=== PATIENT | female | born 1985 | race African-American/Black ===

== ENCOUNTER 2023-07-29 06:19 | Outpatient (RCR) | payer OTHER, SELFPAY | END 2023-07-29 23:59 | disposition home or self-care (01) | LOC: RPT 06:19 | PROVIDERS: ATTENDING PHYSICIAN Obstetrics & Gynecology; PRIMARYCARE PHYSICIAN Family Medicine | DX: M62.89 Other specified disorders of muscle (principal); R10.2 Pelvic and perineal pain; M62.81 Muscle weakness (generalized); R27.8 Other lack of coordination | CPT/HCPCS: 97110; 97162; 97530 ==

== ENCOUNTER 2023-09-20 12:04 | Outpatient (RCR) | payer OTHER, SELFPAY | END 2023-09-20 23:59 | disposition home or self-care (01) | LOC: RPT 12:04 | PROVIDERS: ATTENDING PHYSICIAN Obstetrics & Gynecology; PRIMARYCARE PHYSICIAN Family Medicine | DX: M62.89 Other specified disorders of muscle (principal); R10.2 Pelvic and perineal pain; M62.81 Muscle weakness (generalized); R27.8 Other lack of coordination | CPT/HCPCS: 97014; 97110; 97112; 97140; 97530 ==

== ENCOUNTER 2023-10-21 12:05 | Outpatient (RCR) | payer OTHER, SELFPAY | END 2023-10-21 23:59 | disposition home or self-care (01) | LOC: RPT 12:05 | PROVIDERS: ATTENDING PHYSICIAN Obstetrics & Gynecology; PRIMARYCARE PHYSICIAN Family Medicine | DX: M62.89 Other specified disorders of muscle (principal); R10.2 Pelvic and perineal pain; Z73.6 Limitation of activities due to disability; M62.81 Muscle weakness (generalized); R27.8 Other lack of coordination | CPT/HCPCS: 97014; 97112; 97140; 97530 ==

== ENCOUNTER 2023-12-05 17:03 | Outpatient (RCR) | payer OTHER, SELFPAY | END 2023-12-05 23:59 | disposition home or self-care (01) | LOC: RPT 17:03 | PROVIDERS: ATTENDING PHYSICIAN Obstetrics & Gynecology; PRIMARYCARE PHYSICIAN Family Medicine | DX: M62.89 Other specified disorders of muscle (principal); R27.8 Other lack of coordination; R10.2 Pelvic and perineal pain; M62.81 Muscle weakness (generalized); Z73.6 Limitation of activities due to disability | CPT/HCPCS: 97530 ==

== ENCOUNTER → 2023-12-09 16:08 | Outpatient (REF) | payer OTHER, SELFPAY | LOC: RAD 16:08 | PROVIDERS: ATTENDING PHYSICIAN Internal Medicine; FAMILY PHYSICIAN Family Medicine | DX: R11.0 Nausea (principal); R63.4 Abnormal weight loss | CPT/HCPCS: 74177; Q9967 ==

== ENCOUNTER 2024-03-04 12:14 | Outpatient (RCR) | payer OTHER, SELFPAY | END 2024-03-04 23:59 | disposition home or self-care (01) | LOC: RPT 12:14 | PROVIDERS: ATTENDING PHYSICIAN Psychiatry & Neurology Neurology; FAMILY PHYSICIAN Family Medicine | DX: H93.11 Tinnitus, right ear (principal); R42 Dizziness and giddiness | CPT/HCPCS: 97110; 97162 ==

== ENCOUNTER 2024-03-05 08:47 | Emergency (ER) | payer OTHER, SELFPAY ==
[2024-03-05 08:49] VITALS: BP 134/74
--- NOTE | 2024-03-05 09:14 | ED.GENMED ---
History of Present Illness
General
Chief Complaint: Musculo-Skeletal Complaint
Time Seen by Provider: 03/05/24 09:01
History of Present Illness
History of Present Illness:
38-year-old female with no significant chronic medical history presents to the emergency department for evaluation of left thoracic back discomfort beginning last night. Pain is nonpleuritic and nonradiating, seem to be improved this morning
however worsened abruptly upon awakening. Denies any anterior chest or abdominal pain. No lower urinary tract voiding symptoms. No reported fevers, chills, sweats, coughing, URI symptoms, or extremity paresthesias. She also notes having weight
loss of approximately 60 pounds since July. She did undergo outpatient endoscopy and colonoscopy with 1 polypectomy and otherwise unremarkable biopsies. She reports that she was seen by her primary care physician for this and had labs that
were unrevealing.
Past History
Past History
ED Past Medical History: Other (Fibromyalgia, irritable colitis, IBS)
ED Past Surgical History:
Social History
Tobacco: Smoker
Alcohol: Occasional (Rare alcohol use)
Drug: None
Personal: Partner (Girlfriend)
Living: with family
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
Family History
Family History: Other (Noncontributory)
Review of Systems
Review of Systems
Allergies reviewed?: Yes
All Other Systems: ROS reviewed and negative except as documented in HPI and ROS
Phy Exam
Physical Exam
Physical Exam:
GEN: Well appearing, NAD, WDWN
Eyes: PERRLA, EOMs intact, no scleral icterus
HENT: NCAT, oral mucosa moist
Lungs: CTAB, no wheezes, rales, rhonchi, normal chest wall excursion
Cardiac: RRR, no M/R/G, no peripheral edema. Radial pulses 2+ bilat
Abdomen: S, NT, ND, NABS, no masses or hepatosplenomegaly, no CVA tenderness.
Neuro: AO x 3
MSK: No gross deformity or ecchymosis. No edema. No digital clubbing. Mild tenderness to the left lumbar paraspinous musculature at the patient's reported site of pain
Skin: No rashes, petechiae. Normal color, no pallor or jaundice.
Psych: Calm, cooperative, proper hygiene
Course
Orders/Labs/Results
Orders:
Orders
03/05/24 09:14
CR Chest - 2 Views Urgent
Comment:
Reason For Exam: L thoracic back pain, smoker
03/05/24 09:26
Complete Blood Count/With Diff Urgent
Comprehensive Metabolic Panel Urgent
TSH Reflex To Free T4 Urgent
Urinalysis Reflex To Culture Urgent
Date Specimen was Collected: 03/05/24
Time Specimen was Collected: 09:18
03/05/24 11:17
Add On- LAB Urgent
Tests Added?: TSH reflex free T4
Abnormal Lab Results
03/05/24
09:26
WBC 4.2 L 10^3/uL
(4.8-10.8)
Hgb 11.8 L g/dL
(12.0-16.0)
Hct 34.7 L %
(37.0-47.0)
MPV 11.3 H fL
(7.4-10.4)
03/05/24 09:26
03/05/24 09:26
Vital Signs
Initial and Last Documented VS:
Initial Vital Signs
Temp Pulse Resp BP Pulse Ox
98.2 F 64 16 134/74 100
03/05/24 08:49 03/05/24 08:49 03/05/24 08:49 03/05/24 08:49 03/05/24 08:49
Last Documented Vital Signs
Temp Pulse Resp BP Pulse Ox
98.2 F 64 16 134/74 100
03/05/24 08:49 03/05/24 08:49 03/05/24 08:49 03/05/24 08:49 03/05/24 08:49
MDM/Problems Addressed
MDM/Problems Addressed:
Thoracic back pain is most likely musculoskeletal in nature. Regards to her weight loss this is been worked up as an outpatient previously with endoscopy and colonoscopy as well as outpatient labs and repeat labs in the emergency department are
unremarkable. Unclear etiology but the patient was clinically well. Recommend continued PCP follow-up for this
*Critical Care Note
Total Time (30-74mins, 75-104mins- exclusive of procedures): Not Applicable
ED Attending Note
-
Portions of this chart may have been created with voice recognition software.� Occasional wrong word or��sound alike� substitutions may have occurred due to the inherent limitations of voice recognition software.
Discharge Plan
Departure
Patient Disposition: Home (Routine Discharge)
Date of Disposition: 03/05/24
Time of Disposition: 10:55
Patient with high blood pressure during this ER visit?: No
Discharge Problem:
Back pain, thoracic, Unintentional weight loss
Instructions: Back Pain
Prescriptions:
No Action
cetirizine [Zyrtec] 10 mg Tablet
10 mg PO HS
ibuprofen [Motrin] 800 mg Tablet
800 mg PO Q6H PRN (Reason: pain)
tizanidine 4 mg Tablet
4 mg PO PRN PRN (Reason: muscle pain)
Medical Marijuana
1 dose PO HS
polyethylene glycol 3350 [Miralax] 17 gram Powder In Packet
17 g PO HS
Referrals:
Trav Adam MD [Family Provider] -
Activity Restrictions/Additional Instructions:
Continue to work with your primary doctor regarding your ongoing weight loss
Interventions
Interventions:
*General Assessment Last Done: 03/05/24 09:37
*Neglect/Abuse Screening Last Done: 03/05/24 09:37
ED- Fall Risk Assessment Last Done: 03/05/24 09:39
*ED COVID-19 Vaccine History Last Done: 03/05/24 09:37
*Nursing Disposition Last Done: 03/05/24 11:21
ED-Musculoskeletal Assessment Last Done: 03/05/24 10:41
Discharge Date and Time
Discharge Date/Time: 03/05/24 11:22
Print Language: [place]
[2024-03-05 09:17] VITALS: BMI 27.6
[2024-03-05 09:45] LABS: % Basophils 0.5 % (0-2); % Eosinophils 0.5 % (0-6); % Immature Granulocytes 0.2 % (0-0.5); % Lymphocytes 35.2 % (20.5-51.1); % Monocytes 7.7 % (1.7-9.3); % Neutrophils 55.9 % (42.2-75.2); Absolute Lymphocytes 1.5 10^3/uL (1.2-3.4); Absolute Monocytes 0.3 10^3/uL (0.1-0.6); Absolute Neutrophils 2.3 10^3/uL (1.4-6.5); Hematocrit 34.7 % (37.0-47.0); Hemoglobin 11.8 g/dL (12.0-16.0); Mean Corpuscular Hgb 27.6 pg (27.0-31.0); Mean Corpuscular Volume 81.3 fL (81.0-99.0); Mean Platelet Volume 11.3 fL (7.4-10.4); Nucleated Red Blood Cells % 0 %; Platelet Count 212 10^3/uL (130-400); Red Blood Cell Count 4.27 10^6/uL (4.20-5.40); Red Cell Dist. Width 14.1 % (11.5-14.5); White Blood Cell Count 4.2 10^3/uL (4.8-10.8)
[2024-03-05 09:55] LABS: ALT (SGPT) 13 U/L (0-35); AST (SGOT) 21 U/L (14-36); Albumin 4.4 g/dl (3.5-5.0); Alkaline Phosphatase 47 U/L (38-126); Blood Urea Nitrogen 16 mg/dl (7-17); Calcium 9.5 mg/dl (8.4-10.2); Carbon Dioxide 25 mmol/L (22-30); Chloride 105 mmol/L (98-107); Estimated Creatinine Clearance > 125 ml/min; Glucose 91 mg/dl (70-99); Potassium 3.9 mmol/L (3.5-5.1); Sodium 138 mmol/L (135-145); Total Bilirubin 0.6 mg/dl (0.2-1.3); Total Protein 7.1 g/dl (6.3-8.2); eGFR > 60.00
[2024-03-05 10:12] LABS: Urine Albumin Negative (Neg - Trace); Urine Bilirubin Negative (Negative); Urine Character Clear (Clear); Urine Color Yellow; Urine Glucose Negative (Negative); Urine Ketone Negative (Negative); Urine Leukocyte Negative (Negative); Urine Nitrite Negative (Negative); Urine Occult Blood Negative (Negative); Urine Specific Gravity 1.015 (<1.030); Urine Urobilinogen Negative (Neg - 1+)
[2024-03-05 13:00] LABS: TSH Reflex To Free T4 0.62 uIU/ml (0.47-4.68)
== END 2024-03-05 11:22 | disposition home or self-care (01) ==
LOC: EMR 08:47
PROVIDERS: Physician Assistant; EMERGENCY PHYSICIAN Emergency Medicine; FAMILY PHYSICIAN Family Medicine
DX: M54.6 Pain in thoracic spine (principal); R63.4 Abnormal weight loss; M79.7 Fibromyalgia; K58.9 Irritable bowel syndrome, unspecified; F17.200 Nicotine dependence, unspecified, uncomplicated
CPT/HCPCS: 99283; 71046; 80053; 81003; 84443; 85025

== ENCOUNTER → 2024-04-03 20:10 | Outpatient (REF) | payer OTHER, SELFPAY | LOC: MRI 3T 20:10 | PROVIDERS: ATTENDING PHYSICIAN Psychiatry & Neurology Neurology; FAMILY PHYSICIAN Family Medicine | DX: R93.0 Abnormal findings on diagnostic imaging of skull and head, not elsewhere classified (principal); R42 Dizziness and giddiness; H93.11 Tinnitus, right ear | CPT/HCPCS: 70553; A9575 ==

== ENCOUNTER 2024-09-17 14:50 | Emergency (ER) | payer OTHER, SELFPAY ==
[2024-09-17 14:55] VITALS: BP 176/116
--- NOTE | 2024-09-17 15:20 | ED.GENMED ---
History of Present Illness
General
Chief Complaint: Crisis Evaluation
Source: patient
Time Seen by Provider: 09/17/24 15:10
History of Present Illness
History of Present Illness:
38-year-old female with fibromyalgia, interstitial cystitis, IBS presenting to the emergency department for evaluation of suicidal ideation without any specific plan noting that over the last few months she has felt much more anxious and 'having an
increased difficult time with her PTSD and anxiety'. Patient states that she has been through multiple jobs, feels her current job right now did not adequately train her and feels that she is constantly judged at work, states that she has been
losing a significant amount of weight without trying and no specific etiologies despite following up with medical providers. Today patient was very upset and tearful and mention to her partner that she felt as if she were better off no longer in
this world and was having thoughts of harming herself and was recommended by her partner to come to the ER for help. Patient states that she was started on medication in June for anxiety and depression but has not had much relief. She does
note due to the holidays as well as family members getting sick she has missed multiple appointments with her therapist and has not seen her therapist in a little over 1 month which patient does believe has led to more anxiety and depression.
Currently no physical complaints. Denies any homicidal ideation. She does states sometimes she feels as if she is telling her own self to self-harm and notes that she sometimes will scratch at her chest wall.
Past History
Past History
ED Past Medical History: Fibromyalgia, Psychiatric and Other (Fibromyalgia, irritable colitis, IBS)
ED Past Surgical History:
Social History
Tobacco: Smoker
Alcohol: Occasional (Rare alcohol use)
Drug: None
Personal: Partner (Girlfriend)
Living: with family
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
Family History
Family History: Other (Noncontributory)
Review of Systems
Review of Systems
All Other Systems: ROS reviewed and negative except as documented in HPI and ROS
Phy Exam
Physical Exam
Physical Exam:
GENERAL: Alert , tearful and upset, very anxious in appearance
EYE: conjunctiva clear
Head: Normocephalic atraumatic
NECK: Supple,
ENT: mmm.
LUNGS: no acute respiratory distress
NEUROLOGICAL: Alert and oriented
SKIN: Warm and dry, small well-healed abrasions to the left anterior chest wall
MUSCULOSKELETAL: well perfused.
PSYCH: Normal and appropriate interaction.
Scores
Heart Failure Risk
Heart Failure Risk Score: Not Applicable
Heart Score for Chest Pain Patients
STEMI patient?: Not applicable
Withdrawal Assessment of Alcohol
Withdrawal Assessment Completed?: Not applicable
Course
Orders/Labs/Results
Orders:
Orders
09/17/24 15:04
Test Result ONCE
09/17/24 15:07
Alcohol Urgent
Complete Blood Count/With Diff Urgent
Comprehensive Metabolic Panel Urgent
HCG, Serum Qualitative Screen Urgent
09/17/24 15:29
1:1 Observation - Suicide/ Violent Behavior As Directed
Crisis Consult Urgent
Reason for Consult: suicidal thoughts
Abnormal Lab Results
09/17/24
15:07
Hgb 11.9 L g/dL
(12.0-16.0)
Hct 35.3 L %
(37.0-47.0)
MPV 11.2 H fL
(7.4-10.4)
Glucose 107 H mg/dl
(70-99)
09/17/24 15:07
09/17/24 15:07
Vital Signs
Initial and Last Documented VS:
Initial Vital Signs
Temp Pulse Resp BP Pulse Ox
98.5 F 105 16 176/116 100
09/17/24 14:55 09/17/24 14:55 09/17/24 14:55 09/17/24 14:55 09/17/24 14:55
Last Documented Vital Signs
Temp Pulse Resp BP Pulse Ox
98.5 F 105 16 176/116 100
09/17/24 14:55 09/17/24 14:55 09/17/24 14:55 09/17/24 14:55 09/17/24 14:55
MDM/Problems Addressed
Differential Diagnosis Includes:
Anxiety, depression, suicidal ideation
MDM/Problems Addressed:
38-year-old female presenting to the ER for evaluation of increased anxiety/depression and today was having more thoughts of self-harm. Patient without plan or intent. Has been struggling with some outpatient follow-up. Denies substance abuse
today. Unclear etiology for patient's weight issues. In February she weighed 73 kg, will repeat weight here. Will have patient screened by Ruth Arce. Disposition pending.
Chronic conditions affecting care: Psychiatric illness
Acute Exacerbation and/or Progression of Chronic Illness: Psychiatric illness
*Pulse Oximetry
Patient hypoxic: no
*Critical Care Note
Total Time (30-74mins, 75-104mins- exclusive of procedures): Not Applicable
Data Reviewed
Review of Other/Old Records Reveals: Records
Patient Management
Escalation/DeEscalation of care consider admission/obs:
[facility] Patient without any plan or intent to harm herself. Following ER visit patient notes that she feels much better. She has an appointment with her therapist this coming Saturday. She is aware of return
precautions to the ER.
ED Attending Note
-
Portions of this chart may have been created with voice recognition software.� Occasional wrong word or��sound alike� substitutions may have occurred due to the inherent limitations of voice recognition software.
Discharge Plan
Departure
Patient Disposition: Home (Routine Discharge)
Date of Disposition: 09/17/24
Time of Disposition: 16:56
Patient with high blood pressure during this ER visit?: Yes
Discharge Problem:
Anxiety
Instructions: Anxiety, Adult (DC)
Prescriptions:
No Action
cetirizine [Zyrtec] 10 mg Tablet
10 mg PO HS
ibuprofen [Motrin] 800 mg Tablet
800 mg PO Q6H PRN (Reason: pain)
tizanidine 4 mg Tablet
4 mg PO PRN PRN (Reason: muscle pain)
Medical Marijuana
1 dose PO HS
polyethylene glycol 3350 [Miralax] 17 gram Powder In Packet
17 g PO HS
Referrals:
UNKNOWN - PT NOT,INTERVIEWE [Family Provider] -
Interventions
Interventions:
*Risk Screen - Suicide Last Done: 09/17/24 14:55
*General Assessment Last Done: 09/17/24 14:55
*Neglect/Abuse Screening Last Done: 09/17/24 14:55
*Nursing Disposition Last Done: 09/17/24 17:01
ED-Psychological Assessment Last Done: 09/17/24 15:46
Discharge Date and Time
Discharge Date/Time: 09/17/24 17:01
Print Language: AZERI
[2024-09-17 15:33] LABS: % Basophils 0.2 % (0-2); % Eosinophils 0.3 % (0-6); % Immature Granulocytes 0.3 % (0-0.5); % Lymphocytes 21.5 % (20.5-51.1); % Monocytes 6.7 % (1.7-9.3); Absolute Lymphocytes 1.3 10^3/uL (1.2-3.4); Absolute Monocytes 0.4 10^3/uL (0.1-0.6); Absolute Neutrophils 4.2 10^3/uL (1.4-6.5); Hematocrit 35.3 % (37.0-47.0); Hemoglobin 11.9 g/dL (12.0-16.0); Mean Corp Hgb Conc. 33.7 g/dL (33.0-37.0); Mean Corpuscular Hgb 28.2 pg (27.0-31.0); Mean Corpuscular Volume 83.6 fL (81.0-99.0); Mean Platelet Volume 11.2 fL (7.4-10.4); Nucleated Red Blood Cells % 0 %; Platelet Count 184 10^3/uL (130-400); Red Blood Cell Count 4.22 10^6/uL (4.20-5.40); Red Cell Dist. Width 13.8 % (11.5-14.5); White Blood Cell Count 5.9 10^3/uL (4.8-10.8)
[2024-09-17 15:41] LABS: HCG, Serum Qualitative Screen Negative
[2024-09-17 15:42] LABS: ALT (SGPT) 18 U/L (0-35); AST (SGOT) 22 U/L (14-36); Albumin 4.6 g/dl (3.5-5.0); Alkaline Phosphatase 48 U/L (38-126); Blood Urea Nitrogen 11 mg/dl (7-17); Calcium 9.4 mg/dl (8.4-10.2); Carbon Dioxide 28 mmol/L (22-30); Chloride 99 mmol/L (98-107); Glucose 107 mg/dl (70-99); Potassium 3.5 mmol/L (3.5-5.1); Sodium 137 mmol/L (135-145); Total Bilirubin 0.3 mg/dl (0.2-1.3); Total Protein 7.6 g/dl (6.3-8.2); eGFR > 60.00
[2024-09-17 15:54] LABS: Alcohol None Detected
== END 2024-09-17 17:01 | disposition home or self-care (01) ==
LOC: EMR 14:50
PROVIDERS: EMERGENCY PHYSICIAN Emergency Medicine
DX: F41.8 Other specified anxiety disorders (principal); M79.7 Fibromyalgia; K58.9 Irritable bowel syndrome, unspecified; F43.10 Post-traumatic stress disorder, unspecified; F17.200 Nicotine dependence, unspecified, uncomplicated
CPT/HCPCS: 99283; 80053; 82077; 84703; 85025

== ENCOUNTER 2024-10-14 12:01 | Outpatient (RCR) | payer OTHER, SELFPAY | END 2024-10-14 23:59 | disposition home or self-care (01) | LOC: RPT 12:01 | PROVIDERS: ATTENDING PHYSICIAN Obstetrics & Gynecology; FAMILY PHYSICIAN Family Medicine | DX: M62.89 Other specified disorders of muscle (principal); R10.2 Pelvic and perineal pain; N39.8 Other specified disorders of urinary system; M54.50 Low back pain, unspecified; Z73.6 Limitation of activities due to disability | CPT/HCPCS: 97110; 97140; 97163; 97530 ==

== ENCOUNTER 2024-10-21 05:53 | Emergency (ER) | payer OTHER, SELFPAY ==
[2024-10-21 06:00] VITALS: BP 130/70
[2024-10-21 06:28] VITALS: BMI 24.9
--- NOTE | 2024-10-21 06:39 | ED.GENMED ---
History of Present Illness
General
Chief Complaint: Throat Problem
Time Seen by Provider: 10/21/24 06:26
History of Present Illness
History of Present Illness:
Patient is a 39-year-old woman presented emergency department for sore throat. Patient states for the past day she has had a sore throat. She states that it hurts to talk secondary to the pain. She did feel lymph nodes in her neck. She does
state that her partner was recently sick with the flu. She has been having bodyaches but states that she initially thought it was a side effect from her psychiatric medication. She does state that she does have allergies and reflux which have been
worsening recently. She is not currently on H2 or PPI jaren. She does note that when she was vaping yesterday the pain worsened. No chest pain. No difficulty breathing. No swallowing difficulties. No fevers or chills.
Past History
Past History
ED Past Medical History: Fibromyalgia, Psychiatric and Other (Fibromyalgia, irritable colitis, IBS)
ED Past Surgical History:
Social History
Tobacco: Smoker
Alcohol: Occasional (Rare alcohol use)
Drug: None
Personal: Partner (Girlfriend)
Living: with family
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
Family History
Family History: Other (Noncontributory)
Phy Exam
Physical Exam
Physical Exam:
GENERAL: in no acute distress
HEENT: normocephalic, extraocular movements intact, moist oral mucosa, clear posterior oropharynx with some mild swelling and cobblestoning, tender anterior cervical lymphadenopathy
NECK: normal inspection
RESPIRATORY: no respiratory distress, clear to auscultation bilaterally
CARDIOVASCULAR: regular rate and rhythm
ABDOMEN/: soft, non-distended, non-tender to palpation, no rebound or guarding
EXTREMITIES: non-tender, no edema/swelling
NEUROLOGIC: awake and alert, moves all extremities
SKIN: warm
Course
Orders/Labs/Results
Orders:
Orders
10/21/24 06:10
Rapid Strep Group A Urgent
FAWN Source: Throat/Pharynx
Specimen Description:
Date Specimen was Collected: 10/21/24
Time Specimen was Collected: 06:05
10/21/24 06:38
Viscous Lidocaine 2% [Xylocaine Viscous Cup] 15 ml PO ONCE ONE
10/21/24 06:47
COVID-19 Antigen Urgent
Source: Nasal Swab
Influenza A+B Rapid Molecular Urgent
FAWN Source: Nasal Swab
Specimen Description:
Vital Signs
Initial and Last Documented VS:
Initial Vital Signs
Temp Pulse Resp BP Pulse Ox
98.4 F 74 18 130/70 100
10/21/24 06:00 10/21/24 06:00 10/21/24 06:00 10/21/24 06:00 10/21/24 06:00
Last Documented Vital Signs
Temp Pulse Resp BP Pulse Ox
98.4 F 74 18 130/70 100
10/21/24 06:00 10/21/24 06:00 10/21/24 06:00 10/21/24 06:00 10/21/24 06:00
MDM/Problems Addressed
Differential Diagnosis Includes:
Patient is a 39-year-old woman presenting to the emergency department sore throat for the past 1 day. Vitals are unremarkable and on exam she does have cobblestoning of her posterior oropharynx as well as mild tonsillar swelling. No significant
posterior oropharynx erythema. Concern for viral upper respiratory versus secondary to reflux or allergies. History and exam not consistent with peritonsillar abscess or retropharyngeal abscess or Mateusz's angina. Will check strep COVID and flu.
Will symptomatically treat.
*Critical Care Note
Total Time (30-74mins, 75-104mins- exclusive of procedures): Not Applicable
Update Note
Update Note:
On reevaluation patient feels slightly better. Swabs are negative. Will discharge at this time. Patient advised on using honey versus throat lozenges as well as trying Claritin/Pepcid for her allergies and reflux.
ED Attending Note
-
Portions of this chart may have been created with voice recognition software.� Occasional wrong word or��sound alike� substitutions may have occurred due to the inherent limitations of voice recognition software.
Discharge Plan
Departure
Patient Disposition: Home (Routine Discharge)
Date of Disposition: 10/21/24
Time of Disposition: 08:32
Patient with high blood pressure during this ER visit?: No
Discharge Problem:
Sore throat
Instructions: Sore Throat, Adult (DC)
Prescriptions:
No Action
cetirizine [Zyrtec] 10 mg Tablet
10 mg PO HS
ibuprofen [Motrin] 800 mg Tablet
800 mg PO Q6H PRN (Reason: pain)
tizanidine 4 mg Tablet
4 mg PO PRN PRN (Reason: muscle pain)
Medical Marijuana
1 dose PO HS
polyethylene glycol 3350 [Miralax] 17 gram Powder In Packet
17 g PO HS
Referrals:
Trav Adam MD [Family Provider] -
Interventions
Interventions:
*Risk Screen - Suicide Last Done: 10/21/24 06:00
*General Assessment Last Done: 10/21/24 06:29
*Neglect/Abuse Screening Last Done: 10/21/24 06:00
ED- Fall Risk Assessment Last Done: 10/21/24 06:29
*ED COVID-19 Vaccine History Last Done: 10/21/24 06:29
ED-EENT Assessment Last Done: 10/21/24 06:29
ED- Pulmonary Assessment Last Done: 10/21/24 06:29
Discharge Date and Time
Print Language: MALDIVIAN
[2024-10-21] MEDS: XYLOCAINE VISCOUS CUP 15 ML PO (06:46)
[2024-10-21 07:40] LABS: COVID-19 Antigen Negative (Negative)
[2024-10-21 08:00] VITALS: BP 129/82
== END 2024-10-21 08:54 | disposition home or self-care (01) ==
LOC: EMR 05:53
PROVIDERS: EMERGENCY PHYSICIAN Student in an Organized Health Care Education/Training Program; FAMILY PHYSICIAN Family Medicine
DX: R07.0 Pain in throat (principal); K21.9 Gastro-esophageal reflux disease without esophagitis; F17.200 Nicotine dependence, unspecified, uncomplicated; M79.7 Fibromyalgia; K58.9 Irritable bowel syndrome, unspecified
CPT/HCPCS: 99282; 87070; 87502; 87811; 87880

== ENCOUNTER 2024-11-11 11:09 | Outpatient (RCR) | payer OTHER, SELFPAY | END 2024-11-11 23:59 | disposition home or self-care (01) | LOC: RPT 11:09 | PROVIDERS: ATTENDING PHYSICIAN Obstetrics & Gynecology; FAMILY PHYSICIAN Family Medicine | DX: M62.89 Other specified disorders of muscle (principal); R10.2 Pelvic and perineal pain; N39.8 Other specified disorders of urinary system; M54.50 Low back pain, unspecified; Z73.6 Limitation of activities due to disability; M25.552 Pain in left hip; M25.551 Pain in right hip; K59.09 Other constipation; N39.3 Stress incontinence (female) (male); M62.81 Muscle weakness (generalized) | CPT/HCPCS: 97110; 97140; 97530 ==

== ENCOUNTER 2024-11-13 20:50 | Emergency (ER) | payer OTHER, SELFPAY ==
[2024-11-13 20:52] VITALS: BP 165/102
--- NOTE | 2024-11-13 21:43 | ED.GENMED ---
History of Present Illness
General
Chief Complaint: Musculo-Skeletal Complaint
Source: patient and spouse
Time Seen by Provider: 11/13/24 21:09
History of Present Illness
History of Present Illness:
39-year-old female presents here with her significant other with complaints of left-sided hip area pain. She was dancing just prior to presentation and felt a 'pop' with associated pain. She went to a chair to sit down without relief of pain. She
denies fall, numbness, tingling, swelling, unusual or jerking movements, or other complaints. She has never had this before.
Past History
Past History
ED Past Medical History: Fibromyalgia, Psychiatric and Other (Fibromyalgia, irritable colitis, IBS)
ED Past Surgical History:
Social History
Tobacco: Smoker
Alcohol: Occasional (Rare alcohol use)
Drug: None
Personal: Partner (Girlfriend)
Living: with family
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
Family History
Family History: Other (Noncontributory)
Phy Exam
Physical Exam
Physical Exam:
GENERAL: Alert , tearful but cooperative
EYE: pupils equal and reactive
NECK: Supple, no significant adenopathy.
ENT: o/p clr, mmm.
CARDIAC: Regular rate and rhythm .
LUNGS: Clear breath sounds bilaterally, no acute respiratory distress, no wheezes/rales/rhonchi
ABDOMEN: Soft, without focal tenderness, no r/g
NEUROLOGICAL: Alert and oriented, no focal neuro deficits, sens intact, motor 5/5
SKIN: Warm and dry, skin intact.
MUSCULOSKELETAL: No edema, well perfused.
PSYCH: Normal and appropriate interaction.
BACK: nontender midline, no abnl skin
HIP AREA: ttp noted at ASIS and laterally, no bruising/swelling/redness/warmth/break in skin. No deformity. Able to stand and pivot (but painful to do so).
Course
Orders/Labs/Results
Orders:
Orders
11/13/24 20:53
CR Hip - LT w/wo Pel 2-3 Vw* Urgent
Comment:
Reason For Exam: pain
Include a pelvis x-ray?: No
11/13/24 21:41
diazePAM [Valium Injection] 5 mg IM NOW STA
11/13/24 22:37
Oxycodone/Acetaminophen [Percocet 5/325] 2 tablet PO NOW STA
Vital Signs
Initial and Last Documented VS:
Initial Vital Signs
Temp Pulse Resp BP Pulse Ox
98.1 F 90 20 165/102 99
11/13/24 20:52 11/13/24 20:52 11/13/24 20:52 11/13/24 20:52 11/13/24 20:52
Last Documented Vital Signs
Temp Pulse Resp BP Pulse Ox
98.1 F 61 20 138/79 99
11/13/24 20:52 11/13/24 23:18 11/13/24 20:52 11/13/24 23:18 11/13/24 20:52
*Critical Care Note
Total Time (30-74mins, 75-104mins- exclusive of procedures): Not Applicable
Update Note
Update Note:
Patient presents to the Emergency Department with ____left hip area pain while dancing
Number and Complexity of Problems Addressed at the Encounter
� Chronic conditions affecting care:
� Acute Exacerbation and/or Progression of Chronic Illness:
� Differential Diagnosis includes: But not limited to dislocation, fracture, muscle strain, etc. etc.
Amount and/or Complexity of Data to be Reviewed and Analyzed
� I performed an independent evaluation of and my interpretation is:
EKG:
CT:
Xrays: Read by me confirmed by radiology no fracture, no dislocation
Laboratory Studies:
Other:
� Review of other/old records reveals:
� Clinical information was obtained by an independent historian:
� Prescriptions/Medications Considered but not given:
� Further testing considered but not performed:
Risk of Complications and/or Morbidity or Mortality of Patient Management
� Social determinants of health affecting care:
� Discussion with other providers (PCP, Hospitalists, Consultants, etc):
� Escalation of care including admission/observation vs risk of discharge considered: 10:38 PM patient reexamined she is more comfortable, laying supine with her knees bent and feels better. On closer examination patient has
distinct tenderness to palpation particularly at the ASIS region. No other findings noted. Neurologically intact, vascular intact. Will recommend pain medication and nonweightbearing/crutches until seen by Ortho this week. May have an undetected
avulsion fracture in this area versus strain.
ED Attending Note
-
Portions of this chart may have been created with voice recognition software.� Occasional wrong word or��sound alike� substitutions may have occurred due to the inherent limitations of voice recognition software.
Discharge Plan
Departure
Patient Disposition: Home (Routine Discharge)
Date of Disposition: 11/13/24
Time of Disposition: 23:13
Patient with high blood pressure during this ER visit?: Yes
Condition: Good
Discharge Problem:
STRAIN
Instructions: Muscle Strain (DC), How to Use Crutches, BLOOD PRESSURE
Prescriptions:
New
oxycodone-acetaminophen [Percocet] 5-325 mg tablet
1 tab PO Q4HPRN PRN (Reason: pain) Qty: 17 0RF
cyclobenzaprine 5 mg tablet
5 mg PO BID PRN (Reason: SPASM) Qty: 7 0RF
No Action
cetirizine [Zyrtec] 10 mg Tablet
10 mg PO HS
ibuprofen [Motrin] 800 mg Tablet
800 mg PO Q6H PRN (Reason: pain)
tizanidine 4 mg Tablet
4 mg PO PRN PRN (Reason: muscle pain)
Medical Marijuana
1 dose PO HS
polyethylene glycol 3350 [Miralax] 17 gram Powder In Packet
17 g PO HS
Referrals:
Timi Membreno MD [Active] - Follow up in 2-3 days
UNKNOWN - PT DOES,NOT KNOW [Family Provider] -
Activity Restrictions/Additional Instructions:
IF YOU DEVELOP INCREASING/NEW PAIN, FEVER, REDNESS, WARMTH, NUMBNESS, OR OTHER WORRISOME SIGNS, GO TO THE ER IMMEDIATELY!
Interventions
Interventions:
*Risk Screen - Suicide Last Done: 11/13/24 22:36
*General Assessment Last Done: 11/13/24 20:52
*Neglect/Abuse Screening Last Done: 11/13/24 22:36
*ED- Fall Risk Assessment Last Done: 11/13/24 22:36
*ED COVID-19 Vaccine History Last Done: 11/13/24 22:36
*Nursing Disposition Last Done: 11/13/24 23:29
ED-Musculoskeletal Assessment Last Done: 11/13/24 22:34
Discharge Date and Time
Discharge Date/Time: 11/13/24 23:29
Print Language: HUNGARIAN
[2024-11-13] MEDS: VALIUM INJECTION 5 MG IM (21:44)
[2024-11-13 22:37] VITALS: BMI 26.4
[2024-11-13] MEDS: PERCOCET 5/325 2 TABLET PO (22:40)
[2024-11-13 23:18] VITALS: BP 138/79
== END 2024-11-13 23:29 | disposition home or self-care (01) ==
LOC: EMR 20:50
PROVIDERS: EMERGENCY PHYSICIAN Emergency Medicine
DX: S76.012A Strain of muscle, fascia and tendon of left hip, initial encounter (principal); X58.XXXA Exposure to other specified factors, initial encounter; M79.7 Fibromyalgia; K58.9 Irritable bowel syndrome, unspecified; F17.200 Nicotine dependence, unspecified, uncomplicated
CPT/HCPCS: 99283; 96372; 73502

== ENCOUNTER → 2024-12-02 08:22 | Outpatient (REF) | payer OTHER, SELFPAY | LOC: RAD 08:22 | PROVIDERS: ATTENDING PHYSICIAN Family Medicine Sports Medicine | DX: M25.552 Pain in left hip (principal); R63.4 Abnormal weight loss | CPT/HCPCS: 78315; A9503 ==

== ENCOUNTER 2024-12-10 06:06 | Day surgery (SDC) | payer OTHER, SELFPAY ==
[2024-12-10 06:13] VITALS: BMI 26.0
[2024-12-10 06:26] VITALS: BMI 26.0
[2024-12-10 06:38] VITALS: BP 133/89
[2024-12-10] MEDS: NORMOSOL-R/PLASMALYTE-A 1000 IV (07:01)
--- NOTE | 2024-12-10 07:03 | PTCARENOTE ---
Patient said she had thoughts of killing herself 3 months ago but did not make an attempt. Again clarified with patient that she did not attempt and she stated no. Patient said she is in counseling and feels fine currently.
[2024-12-10 08:03] VITALS: BP 124/69; BP 133/89
[2024-12-10 08:15] VITALS: BP 114/84
[2024-12-10 08:30] VITALS: BP 114/65
[2024-12-10 08:45] VITALS: BP 111/65
== END 2024-12-10 09:05 | disposition home or self-care (01) ==
LOC: SDS 06:06
PROVIDERS: ATTENDING PHYSICIAN Surgery
DX: K59.4 Anal spasm (principal); K59.02 Outlet dysfunction constipation
CPT/HCPCS: 46505; J0585

== ENCOUNTER 2024-12-23 11:14 | Outpatient (RCR) | payer OTHER, SELFPAY | END 2024-12-23 23:59 | disposition home or self-care (01) | LOC: RPT 11:14 | PROVIDERS: ATTENDING PHYSICIAN Obstetrics & Gynecology | DX: M62.89 Other specified disorders of muscle (principal); R10.2 Pelvic and perineal pain; N39.8 Other specified disorders of urinary system; M54.50 Low back pain, unspecified; Z73.6 Limitation of activities due to disability; M25.552 Pain in left hip; M25.551 Pain in right hip; K59.09 Other constipation; N39.3 Stress incontinence (female) (male); M62.81 Muscle weakness (generalized) | CPT/HCPCS: 97110; 97140; 97530 ==

== ENCOUNTER 2025-01-13 16:15 | Outpatient (RCR) | payer OTHER, SELFPAY | END 2025-01-13 23:59 | disposition home or self-care (01) | LOC: RPT 16:15 | PROVIDERS: ATTENDING PHYSICIAN Obstetrics & Gynecology | DX: M62.89 Other specified disorders of muscle (principal); R10.2 Pelvic and perineal pain; N39.8 Other specified disorders of urinary system; M54.50 Low back pain, unspecified; Z73.6 Limitation of activities due to disability; M25.552 Pain in left hip; M25.551 Pain in right hip; K59.09 Other constipation; N39.3 Stress incontinence (female) (male); M62.81 Muscle weakness (generalized) | CPT/HCPCS: 97110; 97140; 97530 ==

== ENCOUNTER 2025-01-22 09:02 | Outpatient (RCR) | payer OTHER, SELFPAY | END 2025-01-22 23:59 | disposition home or self-care (01) | LOC: RPT 09:02 | PROVIDERS: ATTENDING PHYSICIAN General Practice | DX: M47.26 Other spondylosis with radiculopathy, lumbar region (principal); Z73.6 Limitation of activities due to disability | CPT/HCPCS: 97112; 97162 ==

== ENCOUNTER 2025-02-15 10:03 | Outpatient (RCR) | payer OTHER, SELFPAY | END 2025-02-15 23:59 | disposition home or self-care (01) | LOC: RPT 10:03 | PROVIDERS: ATTENDING PHYSICIAN General Practice | DX: M47.26 Other spondylosis with radiculopathy, lumbar region (principal); Z73.6 Limitation of activities due to disability | CPT/HCPCS: 97010; 97110; 97112 ==

== ENCOUNTER 2025-03-18 12:16 | Outpatient (RCR) | payer OTHER, SELFPAY | END 2025-03-18 23:59 | disposition home or self-care (01) | LOC: RPT 12:16 | PROVIDERS: ATTENDING PHYSICIAN Obstetrics & Gynecology | DX: M62.89 Other specified disorders of muscle (principal); R10.2 Pelvic and perineal pain; N39.8 Other specified disorders of urinary system; M54.50 Low back pain, unspecified; Z73.6 Limitation of activities due to disability; M25.552 Pain in left hip; M25.551 Pain in right hip; K59.09 Other constipation; N39.3 Stress incontinence (female) (male); M62.81 Muscle weakness (generalized) | CPT/HCPCS: 97140; 97530 ==